=== PATIENT | female | born 1965 | race Caucasian/White ===

== ENCOUNTER → 2017-08-23 | Outpatient (REF) | payer OTHER, BC | LOC: M SFHCLUC 19:15 | PROVIDERS: ATTEND Nurse Practitioner Family | DX: J02.9 Acute pharyngitis, unspecified (principal) ==

== ENCOUNTER → 2019-10-30 | Outpatient (CLI) | payer BC, OTHER ==
--- NOTE | 2019-10-30 17:13 | REP ---
Clinical: Cough and fever . Comparison: 11/17/2018 . Technique: PA and lateral. Findings: The mediastinum and cardiac silhouette are normal. The lung tolentino are clear and without acute consolidation, effusion, or pneumothorax. The skeletal structures are intact and normal. Impression: 1. No acute cardiopulmonary process. Electronically Signed by Mario Jimenez MD 10/30/2019 05:04 P
== END ==
LOC: M LRY 16:53
PROVIDERS: ATTEND Physician Assistant
DX: R05 Cough (principal); R50.9 Fever, unspecified

== ENCOUNTER → 2019-12-22 | Outpatient (CLI) | payer OTHER, BC ==
[2019-12-22 16:56] LABS: ALBUMIN 3.8 GM/DL (3.2-5.2); ALT/SGPT 23 U/L (12-78); BILIRUBIN,DIRECT < 0.1 MG/DL (0.0-0.2); BILIRUBIN,TOTAL 0.2 MG/DL (0.2-1.0); IRON (FE) 58 UG/DL (50-170); PERCENT SATURATION 16.2 % (13.2-45.0); TOTAL IRON BINDING CAPACITY 357 UG/DL (250-450); TOTAL PROTEIN 6.9 GM/DL (6.4-8.2)
== END ==
LOC: M LAB 15:39
PROVIDERS: ATTEND Internal Medicine Gastroenterology
DX: R74.8 Abnormal levels of other serum enzymes (principal)

== ENCOUNTER → 2020-05-19 | Outpatient (CLI) | payer OTHER, BC ==
[~2020-05-19] MED LIST: CALCCAP4 PO; CYCL-707 PO; FLON1SPR NARES; LINZ290C PO; PANT40TA3 PO; RA B1TAB7 PO; RALO1TAB PO; VALA500T5 PO; VITA1TAB61 PO; VITAD1000T PO
[2020-05-19 13:22] LABS: ALBUMIN 3.7 GM/DL (3.2-5.2); BILIRUBIN,DIRECT 0.1 MG/DL (0.0-0.2); BILIRUBIN,TOTAL 0.5 MG/DL (0.2-1.0); TOTAL PROTEIN 6.8 GM/DL (6.4-8.2)
[2020-05-25 03:07] LABS: CERULOPLASMIN 21.3 mg/dL (19.0-39.0)
== END ==
LOC: M WUC 10:51
PROVIDERS: ATTEND Psychiatry & Neurology Neurology
DX: R25.1 Tremor, unspecified (principal); R74.8 Abnormal levels of other serum enzymes

== ENCOUNTER → 2020-05-26 | Outpatient (CLI) | payer OTHER, BC | LOC: M LABSMTC 11:18 | PROVIDERS: ATTEND Anesthesiology | DX: Z01.818 Encounter for other preprocedural examination (principal); Z11.59 Encounter for screening for other viral diseases | CPT/HCPCS: C9803; U0003 ==

== ENCOUNTER 2020-05-29 08:25 | Day surgery (SDC) | payer OTHER, BC ==
[~2020-05-29] VITALS: Ht 167.6 cm; Wt 57.2 kg
[~2020-05-29 08:25] MED LIST changes: +NS 1,000 ML IV ONE
[2020-05-29] MEDS ORDERED: propofoL 500 MG/50 ML VIAL As Ordered ONE (09:14)
[2020-05-29] MEDS ORDERED: LIDOCAINE 2% 100MG/5ML SDV (FOR ANES.) As Ordered ONE (09:14)
--- NOTE | 2020-05-29 09:36 | ROOR ---
Patient Name: Tori Torres Procedure Date: 05/29/2020 9:09 AM Date of : 1965 Age: 54 Room: [facility] Gender: Female Note Status: Finalized Procedure: Colonoscopy Indications: High risk colon cancer surveillance: Personal history of colonic polyps, Last colonoscopy: March 2015 Providers: Tawanda FERNANDEZ MD Referring MD: ELIUD ESPINOZA Requesting Provider: Medicines: Monitored Anesthesia Care Complications: No immediate complications. Procedure: Pre-Anesthesia Assessment: - The heart rate, respiratory rate, oxygen saturations, blood pressure, adequacy of pulmonary ventilation, and response to care were monitored throughout the procedure. The Colonoscope was introduced through the anus and advanced to the cecum, identified by appendiceal orifice and ileocecal valve. The colonoscopy was performed without difficulty. The patient tolerated the procedure well. The quality of the bowel preparation was good. Findings: The perianal and digital rectal examinations were normal. A 4 mm polyp was found in the proximal transverse colon. The polyp was sessile. The polyp was removed with a cold snare. Resection and retrieval were complete. The colon (entire examined portion) was redundant. The exam was otherwise without abnormality on direct and retroflexion views. Impression: - One 4 mm polyp in the proximal transverse colon, removed with a cold snare. Resected and retrieved. - Redundant colon. - The examination was otherwise normal on direct and retroflexion views. Recommendation: - Repeat colonoscopy in 5 years for surveillance. - Return to referring physician as previously scheduled. Tawanda Fernandez MD Tawanda FERNANDEZ MD 05/29/2020 9:35:58 AM Electronically signed by Tawanda FERNANDEZ MD Number of Addenda: 0 Note Initiated On: 05/29/2020 9:09 AM Estimated Blood Loss: Estimated blood loss: none.
[2020-05-29 10:11] VITALS: BP 102/66
== END 2020-05-29 10:14 | disposition home or self-care (01) ==
LOC: M OPP 08:25
PROVIDERS: ATTEND Internal Medicine Gastroenterology
DX: Z12.11 Encounter for screening for malignant neoplasm of colon (principal); Z86.010 Personal history of colon polyps; K63.5 Polyp of colon; Q43.8 Other specified congenital malformations of intestine; Z79.899 Other long term (current) drug therapy; Z88.0 Allergy status to penicillin; Z88.5 Allergy status to narcotic agent; Z91.018 Allergy to other foods

== ENCOUNTER 2025-08-29 08:47 | Day surgery (SDC) | payer OTHER ==
[~2025-08-29] VITALS: Ht 167.6 cm; Wt 65.8 kg
[~2025-08-29 08:47] MED LIST changes: -NS 1,000 ML IV ONE; +PANT40TA29 PO; -PANT40TA3 PO; +VITA100093 PO; -VITAD1000T PO
[2025-08-29] MEDS ORDERED: LIDOCAINE 2% 100 MG/5 ML SDV (FOR ANES.) As Ordered ONE (09:57)
[2025-08-29] MEDS ORDERED: GLYCOPYRROLATE INJ 0.2 MG/ML 2 ML VIAL As Ordered ONE (09:57)
[2025-08-29 10:28] VITALS: TEMP 97.8
[2025-08-29 10:54] VITALS: BP 118/76; O2SAT 96
== END 2025-08-29 10:59 | disposition home or self-care (01) ==
LOC: M OPP 08:47
PROVIDERS: ATTEND Internal Medicine Gastroenterology
DX: Z12.11 Encounter for screening for malignant neoplasm of colon (principal); K63.5 Polyp of colon; Q43.8 Other specified congenital malformations of intestine; Z80.0 Family history of malignant neoplasm of digestive organs; Z88.0 Allergy status to penicillin; Z88.5 Allergy status to narcotic agent; Z91.018 Allergy to other foods; Z79.51 Long term (current) use of inhaled steroids; Z79.899 Other long term (current) drug therapy
CPT/HCPCS: 45385; 88305; J1596